=== PATIENT | male | born 1960 | race Caucasian/White ===

== ENCOUNTER 2022-04-15 18:35 | Inpatient (IN) | payer OTHER ==
[~2022-04-15] VITALS: Ht 167.6 cm; Wt 69.4 kg
[~2022-04-15 18:35] MED LIST: ASPIRIN ADULT L81 M2 PO; LIPITOR10 MG PO; MULTI-VITAMIN1 EACH PO; SENNA-PLUS TAB1 EACH PO; TRAZODONE150 MG PO; XANAX0.25 MG PO; ZYPREXA5 M1 PO
[2022-04-15 18:42] VITALS: BP 139/82
[2022-04-15 19:01] LABS: BASO % 0.6 % (0.0-1.0); EOS # 0.3 10*3/uL (0.0-0.4); EOS % 4.2 % (1.0-4.0); HEMATOCRIT 41.5 % (42.0-52.0); LYMPH # 1.9 10*3/uL (1.3-4.4); MEAN CORPUSCULAR HGB CONC 31.6 g/dl (33.0-37.0); MONO # 0.6 10*3/uL (0.1-1.0); MONO % 7.7 % (3.0-9.0); NEUT # 4.4 10*3/uL (2.3-7.9); NEUT % 61.4 % (47.0-73.0); PLATELET COUNT AUTOMATED 232 10*3/uL (130-400); RED BLOOD COUNT 4.51 10*6/uL (4.50-5.90); RED CELL DISTRI WIDTH 14.7 % (0-14.5); WHITE BLOOD COUNT 7.2 10*3/uL (4.8-10.8)
[2022-04-15 19:20] LABS: ALKALINE PHOSPHATASE 57 U/L (46-116); BUN 17 mg/dl (9-23); CHLORIDE 102 mmol/L (98-107); POTASSIUM 4.3 mmol/L (3.4-5.1); SGPT/ALT 25 U/L (10-49); THYROID STIM HORMONE (HS) 2.523 uIU/ml (0.550-4.780); TOTAL PROTEIN 7.1 gm/dL (6.0-8.0)
[2022-04-15 19:21] LABS: ETHYL ALCOHOL < 3.0 mg/dl (<3)
[2022-04-15 19:57] LABS: BILIRUBIN Negative (Negative); BLOOD Negative (Negative); CLARITY Clear (Clear); COLOR Yellow (Yellow); GLUCOSE Negative (Negative); KETONE Negative (Negative); LEUKO ESTERASE Negative (Negative); NITRITE Negative (Negative); PH 6.5 (4.5-8.0); UROBILINOGEN 0.2 E.U./dl (0.0-1.0)
[2022-04-15 20:05] LABS: URINE AMPHETAMINES Negative (1000ng/ml); URINE BARBITURATES Negative (200ng/ml); URINE BENZODIAZEPINES Positive (200ng/ml); URINE CANNABINOIDS (THC) Negative (50ng/ml); URINE COCAINE Negative (300ng/ml); URINE METHADONE Negative (300ng/ml); URINE OPIATES Negative (300ng/ml); URINE PHENCYCLIDINE Negative (25ng/ml)
[2022-04-15 20:08] LABS: EPITHELIAL CELLS 0-2
[2022-04-15 21:13] VITALS: BP 128/86
[2022-04-15] MEDS ORDERED: SENOKOT-S TABL1 EACH PO (21:51)
[2022-04-16 06:57] LABS: THYROID STIM HORMONE (HS) 3.817 uIU/ml (0.550-4.780)
[2022-04-16 07:49] VITALS: BP 135/72
[2022-04-16 09:03] LABS: VITAMIN D, 25-HYDROXY 33.2 ng/mL (30-100)
[2022-04-16 20:00] VITALS: BP 111/60
[2022-04-17 07:22] VITALS: BP 132/68
[2022-04-17 20:00] VITALS: BP 118/70
[2022-04-18 07:30] VITALS: BP 140/68
[2022-04-18 23:00] VITALS: BP 122/58
[2022-04-19 07:18] VITALS: BP 137/87
[2022-04-19 20:00] VITALS: BP 142/77
[2022-04-20 08:00] VITALS: BP 117/67; BP 120/63
[2022-04-20] MEDS ORDERED: DIVALPROEX SOD125 M1 PO (09:42)
[2022-04-20] MEDS ORDERED: RIVASTIGMINE1 EAC2 T (09:42)
[2022-04-20] MEDS ORDERED: TRAZODONE150 MG PO (09:42)
[2022-04-20] MEDS ORDERED: MEMANTINE HCL10 MG PO (09:42)
== END 2022-04-20 14:04 | DRG 758 ==
LOC: ED 18:35 → 3N 20:51
PROVIDERS: Physician Assistant; ADMIT Psychiatry & Neurology Psychiatry; ATTEND Psychiatry & Neurology Psychiatry
DX: F63.81 Intermittent explosive disorder (principal); G30.0 Alzheimer's disease with early onset; D64.9 Anemia, unspecified; Z20.822 Contact with and (suspected) exposure to COVID-19; R73.9 Hyperglycemia, unspecified; F02.818 Dementia in other diseases classified elsewhere, unspecified severity, with other behavioral disturbance; E78.2 Mixed hyperlipidemia; F33.9 Major depressive disorder, recurrent, unspecified; F41.9 Anxiety disorder, unspecified; Z66 Do not resuscitate; M19.91 Primary osteoarthritis, unspecified site; Z79.82 Long term (current) use of aspirin; Z79.899 Other long term (current) drug therapy